=== PATIENT | male | born 1970 | race Caucasian/White ===

== ENCOUNTER 2020-08-08 05:50 | Emergency (ER) | payer SELFPAY ==
[~2020-08-08] VITALS: Ht 180.3 cm; Wt 140.6 kg
[2020-08-08 06:02] VITALS: BP 152/122
[2020-08-08 06:05] VITALS: BP 152/122
== END 2020-08-08 06:18 ==
LOC: MED 05:50
DX: Z04.1 Encounter for examination and observation following transport accident (principal); Z02.89 Encounter for other administrative examinations; I10 Essential (primary) hypertension; V89.2XXA Person injured in unspecified motor-vehicle accident, traffic, initial encounter; Y93.89 Activity, other specified; Y92.89 Other specified places as the place of occurrence of the external cause; Y99.8 Other external cause status
CPT/HCPCS: 99283